=== PATIENT | male | born 1990 | race Caucasian/White ===

== ENCOUNTER → 2018-09-16 | Outpatient (CLI) | payer OTHER ==
[~2018-09-16] MED LIST: CONRAY-43 43% 50ML VIAL (Q9960) As Ordered ONE; PROHANCE 279.3MG/ML 5ML VIAL (A9576) As Ordered ONE
--- NOTE | 2018-09-16 09:52 | REP ---
MR ARTHROGRAM LEFT SHOULDER: TECHNIQUE: Axial T2 fat sat, coronal oblique T1, T2 fat sat, post arthrogram axial T1 fat sat, proton density, coronal oblique T1 fat sat, T2 sat, sagittal oblique T2 fat sat, ABER T1 fat sat. There is ill-defined high signal in the supraspinatus tendon compatible with tendinopathy/tendinitis. No rotator cuff tendon tear is seen. I do not see significant hypertrophic changes at the acromioclavicular joint. The acromion is type 2. The biceps tendon is within the bicipital groove with no tenosynovitis. There is no Hill-Sachs deformity. No abnormal signal is seen in the deltoid muscle. The biceps labral complex is intact. I do not see evidence of a labral tear. There is no paralabral cyst. There is no abnormal bone marrow signal. There is no bone marrow edema or occult fracture. There is a normal amount of joint fluid. IMPRESSION: Supraspinatus tendinopathy/tendinitis. No rotator cuff tear or labral tear. Type 2 acromion. Electronically Signed by Lane Hinojosa MD 09/16/2018 12:45 P
--- NOTE | 2018-09-16 13:53 | REP ---
Procedure: Left shoulder arthrogram The procedure was performed under the direct supervision of Dr. Hinojosa. History: Left shoulder pain The benefits and risks including but not limited to pain, infection, bleeding and anaphylaxis were explained to the patient and informed consent was obtained. Technique: The left glenohumeral joint space was localized using fluoroscopic guidance. The skin was prepped and draped in a sterile fashion. 1% lidocaine was used as a local anesthetic. Using fluoroscopic guidance a 22 gauge spinal needle was inserted and advanced into the joint. 0.5 ml of Conray 43 was injected to verify placement. 11 ml of a solution containing 20 ml of sterile saline and 0.15 ml of ProHance was injected into the joint. The needle was removed and the patient was taken to MRI for postprocedural imaging. The patient tolerated the procedure well and there were no immediate complications. Less than 6 seconds of fluoro time was utilized for this procedure. Reviewed by SARA Murdock 09/16/2018 12:59 P Electronically Signed by Lane Hinojosa MD 09/16/2018 01:44 P
== END ==
LOC: M RADPRO 06:41
PROVIDERS: ATTEND Nurse Practitioner
DX: M75.82 Other shoulder lesions, left shoulder (principal); M25.512 Pain in left shoulder
CPT/HCPCS: 23350; 73223; 77002; A9576; Q9960